=== PATIENT | female | born 1990 | race American Indian/Alaskan Native ===

== ENCOUNTER 2016-06-07 14:32 | Outpatient (CLI) | payer OTHER ==
--- NOTE | 2016-06-07 15:50 | Mammography Report ---
Bilateral mammogram: No previous studies available. CAD study utilized. Findings: Bilateral dense breast parenchyma. Scattered ill-defined densities are noted at right and left breast which may represent glandular parenchyma or mass. No microcalcification. Normal axilla. Impression: Scattered densities bilaterally. Comparison with previous studies is recommended. If previous studies are not available global sonographic examination of right and left breast is advised. BI-RADS CATEGORY: 0 = Needs additional imaging evaluation ACR BI-RADS MAMMOGRAPHIC CODES: 0 = Needs additional imaging evaluation; 1 = Negative; 2 = Benign; 3 = Probably benign; 4 = Suspicious; 5 = Malignant; 6 = Known biopsy-proven malignancy COMMENT: 1. Dense breast tissue, i.e., adenosis, fibrocystic changes, etc., may obscure an underlying neoplasm. 2. Approximately 10% of cancers are not detected with mammography. 3. A negative mammography report should not delay biopsy if a clinically suspicious mass is present. COMMENT: Patient follow-up letters are generated in [email or web address].
== END 2016-06-07 14:33 | disposition home or self-care (01) ==
LOC: MAMMO 14:32
DX: Z12.31 Encounter for screening mammogram for malignant neoplasm of breast (principal)
CPT/HCPCS: 77067; G0202

== ENCOUNTER 2017-03-24 09:44 | Outpatient (CLI) | payer BC ==
--- NOTE | 2017-03-24 15:26 | Mammography Report ---
BILATERAL DIGITAL SCREENING MAMMOGRAM with CAD: 03/24/17 09:44:00 CLINICAL: Routine screening.This 26-year-old patient is scheduled for bilateral breast augmentation with fat transfer. COMPARISON:06/07/16 FINDINGS: The breasts are heterogeneously dense, which may obscure small masses and the breasts are sufficiently dense to limit the sensitivity of mammography. A left upper asymmetry on the MLO view requires additional imaging. No architectural distortion or suspicious calcifications. The right breast is negative. IMPRESSION: Left asymmetry requiring further workup. BI-RADS CATEGORY: 0 -- Additional Imaging Evaluation Required RECOMMENDATION: Recall for left mediolateral , spot compression exaggerated CC and MLO views and left breast ultrasound if needed. ACR BI-RADS MAMMOGRAPHIC CODES: 0 = Needs additional imaging evaluation; 1 = Negative; 2 = Benign; 3 = Probably benign; 4 = Suspicious; 5 = Malignant; 6 = Known biopsy-proven malignancy COMMENT: 1. Dense breast tissue, i.e., adenosis, fibrocystic changes, etc., may obscure an underlying neoplasm. 2. Approximately 10% of cancers are not detected with mammography. 3. A negative mammography report should not delay biopsy if a clinically suspicious mass is present. COMMENT: Patient follow-up letters are generated via our [employer] application.
== END 2017-03-24 09:45 | disposition home or self-care (01) ==
LOC: MAMMO 09:44
PROVIDERS: ATTEND Obstetrics & Gynecology
DX: Z12.31 Encounter for screening mammogram for malignant neoplasm of breast (principal)
CPT/HCPCS: 77067